=== PATIENT | female | born 1970 ===

== ENCOUNTER 2018-08-06 14:37 | Outpatient (REF) | payer MEDICAID, SELFPAY | END 2018-08-06 14:57 | LOC: NCHCN 14:37 | PROVIDERS: PCP Nurse Practitioner Family; Visit Provider Family Medicine | DX: R69 Illness, unspecified (principal) | CPT/HCPCS: 80053; 85652; 85025 ==

== ENCOUNTER 2021-01-07 13:35 | Outpatient (REF) | payer MEDICAID, SELFPAY ==
[2021-01-07 21:32] LABS: ALT 26 U/L (14-59); AST 26 U/L (15-37); Albumin 4.5 g/dL (3.4-5.0); Alkaline Phosphatase 112 U/L (46-116); Anion Gap 9.9 mmol/L (3-11); BUN 13 mg/dL (7-18); Bilirubin, Total 0.5 mg/dL (0.2-1.0); CO2 28.1 mmol/L (21.0-32.0); CREATININE 0.8 mg/dL (0.55-1.02); Calculated LDL 152 mg/dL (<100); Chloride 106 mmol/L (98-107); Cholesterol 232 mg/dL (<200); Glucose 80 mg/dL (74-106); HDL Cholesterol 62 mg/dL (40-60); Sodium 144 mmol/L (136-145); Total Protein 8.2 g/dL (6.4-8.2); Triglyceride 91 mg/dL (<150)
[2021-01-11 10:26] LABS: Hepatitis C Ab w Rflx HCV PCR Negative (Negative)
[2021-01-11 11:30] LABS: Syphilis Serology (RPR) Negative (Negative)
[2021-01-11 11:56] LABS: HIV-1/2 Ag & Ab Screen Negative (Negative)
[2021-01-11 15:48] LABS: Chlamydia Result Negative (Negative); GC Result Negative (Negative)
== END 2021-01-07 13:36 | disposition home or self-care (01) ==
LOC: NCHCN 13:35
PROVIDERS: PCP Nurse Practitioner Family; Visit Provider Nurse Practitioner Family
DX: N92.1 Excessive and frequent menstruation with irregular cycle (principal); Z11.3 Encounter for screening for infections with a predominantly sexual mode of transmission; Z13.220 Encounter for screening for lipoid disorders; Z11.4 Encounter for screening for human immunodeficiency virus [HIV]; Z11.59 Encounter for screening for other viral diseases
CPT/HCPCS: 80053; 80061; 86803; 87389; 87491; 87591; 86592

== ENCOUNTER 2021-11-12 13:46 | Outpatient (REF) | payer MEDICAID, SELFPAY ==
[2021-11-14 22:15] LABS: COVID-19 RT-PCR UVMMC Result Positive (Negative)
== END 2021-11-12 13:47 | disposition home or self-care (01) ==
LOC: NCHCN 13:46
PROVIDERS: PCP Nurse Practitioner Family; Visit Provider Nurse Practitioner Family
DX: Z20.822 Contact with and (suspected) exposure to COVID-19 (principal); J06.9 Acute upper respiratory infection, unspecified
CPT/HCPCS: U0003

== ENCOUNTER 2024-08-08 12:40 | Outpatient (REF) | payer MEDICAID, SELFPAY ==
[2024-08-09 13:06] LABS: Bacterial Vaginosis (BV) Negative (Negative); Candida glabrata Negative (Negative); Candida species group Negative (Negative); Trichomonas vaginalis Negative (Negative)
== END 2024-08-08 12:41 | disposition home or self-care (01) ==
LOC: NCHCN 12:40
PROVIDERS: PCP Nurse Practitioner Family; Visit Provider Family Medicine
DX: L29.3 Anogenital pruritus, unspecified (principal); N39.0 Urinary tract infection, site not specified; R82.89 Other abnormal findings on cytological and histological examination of urine
CPT/HCPCS: 81513; 87481; 87661; 87086

== ENCOUNTER 2025-01-08 10:41 | Outpatient (REF) | payer MEDICAID, SELFPAY ==
[2025-01-09 12:52] LABS: Bacterial Vaginosis (BV) Negative (Negative); Candida glabrata Negative (Negative); Candida species group Negative (Negative); Trichomonas vaginalis Negative (Negative)
== END 2025-01-08 10:42 | disposition home or self-care (01) ==
LOC: NCHCN 10:41
PROVIDERS: PCP Nurse Practitioner Family; Visit Provider Family Medicine
DX: B37.31 Acute candidiasis of vulva and vagina (principal); R82.89 Other abnormal findings on cytological and histological examination of urine
CPT/HCPCS: 81513; 87481; 87661; 87086

== ENCOUNTER 2025-01-10 11:16 | Outpatient (REF) | payer MEDICAID, SELFPAY | END 2025-01-10 11:17 | disposition home or self-care (01) | LOC: NCHCN 11:16 | PROVIDERS: PCP Nurse Practitioner Family; Visit Provider Family Medicine | DX: B37.31 Acute candidiasis of vulva and vagina (principal) | CPT/HCPCS: 87086 ==